=== PATIENT | male | born 1985 | race Hispanic/Latino ===

== ENCOUNTER 2019-03-13 11:19 | Emergency (ER) | payer SELFPAY ==
[2019-03-13] MEDS ORDERED: MORPHINE 4 MG/ML SYR ONE (11:43)
[2019-03-13] MEDS ORDERED: ONDANSETRON 4 MG/2 ML VIAL ONE (11:43)
[2019-03-13 11:54] LABS: Absolute Lymphocytes (CBC) 3.7 K/uL (0.7-4.9); Absolute Monocytes 0.7 K/uL (0.1-1.3); Absolute Neutrophil 4.3 K/uL (1.8-8.0); Basophils % 0.6 % (0-1.3); Eosinophils % 1.7 % (0-4.4); Hematocrit 45.2 % (39.6-49.0); Lymphocytes % 41.4 % (15.3-44.8); MPV 8.4 fL (7.6-11.3); Monocytes % 7.4 % (3.3-12.3); RBC Red Blood Cell Count 5.17 M/uL (4.33-5.43)
[2019-03-13 11:56] LABS: Potassium 3.4 mmol/L (3.5-5.1)
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
[2019-03-13] MEDS ORDERED: IBUPROFEN 400 MG TAB ONE (14:00)
== END 2019-03-13 13:59 | disposition home or self-care (01) ==
LOC: ER 11:19
DX: S39.012A Strain of muscle, fascia and tendon of lower back, initial encounter (principal); S20.222A Contusion of left back wall of thorax, initial encounter; S00.90XA Unspecified superficial injury of unspecified part of head, initial encounter; W22.8XXA Striking against or struck by other objects, initial encounter; Y93.89 Activity, other specified; Y92.89 Other specified places as the place of occurrence of the external cause; Y99.8 Other external cause status
CPT/HCPCS: 36415; 70450; 71260; 72125; 74177; 80048; 85025; 86850; 86900; 86901; 96374; 96375; 99285; J2405; Q9967